=== PATIENT | male | born 1970 | race Caucasian/White ===

== ENCOUNTER 2024-09-02 09:48 | Emergency (ER) | payer OTHER ==
[2024-09-02 10:07] VITALS: RESP 18; TEMP 98.6
--- NOTE | 2024-09-02 10:17 | ED ---
General Adult HPI - General Chief complaint: ENT Stated complaint: Nose Bleed Time Seen by Provider: 09/02/24 09:54 Source: patient Mode of arrival: EMS - History of Present Illness Initial comments: Dictation was produced using [employer] dictation software. please excuse any grammatical, word or spelling errors. Chief Complaint: 53-year-old male with epistaxis History of Present Illness: Patient is a 53-year-old male he was driving to work when all of a sudden his no started bleeding. Patient panic because he was bleeding rather heavily [place] he called EMS patient was brought to the emergency department. En route to the ER patient's nose stopped bleeding. Denies any pain. Days patient does not take any anticoagulation medications. Patient [place] any symptoms at the bedside. Patient has trouble with nosebleeds especially during the wintertime The ROS documented in this emergency department record has been reviewed and confirmed by me. Those systems with pertinent positive or negative responses have been documented in the HPI. All other systems are other negative and/or noncontributory. - Related Data Previous Rx's Medication Instructions Recorded Cephalexin [Keflex] 500 mg PO Q12HR 7 Days #14 cap 09/02/24 Saline Nasal Gel [Haslet Nasal Gel] 1 applic TOPICAL DAILY #14.1 gm 09/02/24 Allergies Allergy/AdvReac Type Severity Reaction Status Date / Time mold AdvReac Rash/Hives Verified 09/02/24 10:07 Review of Systems ROS Statement: Those systems with pertinent positive or pertinent negative responses have been documented in the HPI. ROS Other: All systems not noted in ROS Statement are negative. Past Medical History Past Medical History: Hypertension History of Any Multi-Drug Resistant Organisms: None Reported Past Surgical History: Orthopedic Surgery Additional Past Surgical History / Comment(s): right thumb Past Psychological History: No Psychological Hx Reported Smoking Status: Never smoker Past Alcohol Use History: None Reported Past Drug Use History: None Reported General Exam - General Exam Comments Initial Comments: General: Well-appearing, nontoxic, no acute distress, dried blood on his hands and short Head: Normocephalic, atraumatic Eyes: PERRLA, EOMI ENT: Airway patent Naris: No active bleeding, no nasal septal hematoma, no blood in the posterior oropharynx Chest: Nonlabored breathing Skin: No visual rash, normal skin tone Neuro: Alert and oriented 3 Musculoskeletal: No gross abnormalities Course Vital Signs 12/17/24 12/17/24 12/17/24 10:02 10:56 11:59 Temperature 98.6 F Pulse Rate 102 H 108 H 107 H Respiratory 18 18 18 Rate Blood Pressure 177/99 174/95 177/98 O2 Sat by Pulse 98 95 96 Oximetry Medical Decision Making - Medical Decision Making Was pt. sent in by a medical professional or institution (, PA, [employer], urgent care, hospital, or fci...) When possible be specific @ -No Did you speak to anyone other than the patient for history (EMS, parent, family, police, friend...)? What history was obtained from this source @ -No Did you review nursing and triage notes (agree or disagree)? Why? @ -I reviewed and agree with nursing and triage notes Were old charts reviewed (outside hosp., previous admission, EMS record, old EKG, old radiological studies, urgent care reports/EKG's, fci records)? Report findings @ -No old charts were reviewed Differential Diagnosis (chest pain, altered mental status, abdominal pain women, abdominal pain men, vaginal bleeding, musculoskeletal, weakness, fever, dyspnea, syncope, headache, dizziness, GI bleed, back pain, seizure, CVA, palpatations, mental health)? @ -Anterior nasal bleed, posterior nasal bleed, nasal fracture, nasal septal hematoma EKG interpreted by me (3pts min.). @ -None done X-rays interpreted by me (1pt min.). @ -None done CT interpreted by me (1pt min.). @ -None done U/S interpreted by me (1pt. min.). @ -None done What testing was considered but not performed or refused? (CT, X-rays, U/S, labs)? Why? @ -None What meds were considered but not given or refused? Why? @ -None Was smoking cessation discussed for >3mins.? @ -No Were there social determinants of health that impacted care today? How? (Homelessness, low income, unemployed, alcoholism, drug addiction, transportation, low edu. Level, literacy, decrease access to med. care, [facility], rehab)? @ -No Was there de-escalation of care discussed even if they declined (Discuss DNR or withdrawal of care, Hospice)? DNR status @ -No What co-morbidities impacted this encounter? (DM, HTN, Smoking, COPD, CAD, Cancer, CVA, ARF, Chemo, Hep., AIDS, mental health diagnosis, sleep apnea, morb id obesity)? @ -None Was patient admitted / discharged? Hospital course, mention meds given and route, prescriptions, significant lab abnormalities, going to OR and other pertinent info. @ -53-year-old male with epistaxis. Vital signs stable. Patient well- appearing at the bedside. No active epistaxis at the bedside. Patient given Afrin nasal spray and Isabella nasal spray. Discharged told to follow-up with ENT. Source of bleed is likely anterior. Following department patient had recurrence of nosebleed. Patient's left nostril was packed with Merocel. He was observed emergency department for totality of 2 hours and 34 minutes. Reevaluated again at bedside 12:23 PM with no recurrence of bleeding. Patient given nasal sprays along with antibiotics and referral to ENT Did you discuss the management of the patient with other professionals (professionals i.e. , PA, [employer], lab, RT, psych nurse, bilingual social worker, hook up driver, teacher, community relations officer, case management associate)? Give summary @ -No Was critical care preformed (if so, how long)? @ -No Undiagnosed new problem with uncertain prognosis? @ -No Drug Therapy requiring intensive monitoring for toxicity (Heparin, Nitro, Insulin, Cardizem)? @ -No Were any procedures done? @ -No Diagnosis/symptom? Acute, or Chronic, or Acute on Chronic? Uncomplicated (without systemic symptoms) or Complicated (systemic symptoms)? @ -Epistaxis Side effects of treatment? @ -No Exacerbation, Progression, or Severe Exacerbation? @ -No Poses a threat to life or bodily function? How? (Chest pain, [place], [place], pneumonia, PE, COPD, DKA, ARF, appy, cholecystitis, CVA, Diverticulitis, Homicidal, Suicidal, threat to staff... and all critical care pts) @ -No Disposition Clinical Impression: Epistaxis Disposition: HOME SELF-CARE Condition: Good Instructions (If sedation given, give patient instructions): Nosebleed (ED) Additional Instructions: Do not remove nasal packing. Take antibiotics for as long as the nasal packing is in place. Please follow-up with ENT for further care. Prescriptions: Saline Nasal Gel [Haslet Nasal Gel] 1 applic TOPICAL DAILY #14.1 gm Cephalexin [Keflex] 500 mg PO Q12HR 7 Days #14 cap Is patient prescribed a controlled substance at d/c from ED?: No Referrals: Gopi Rasmussen MD [STAFF PHYSICIAN] - 1-2 days Time of Disposition: 10:16
[2024-09-02] MEDS: OXYMETAZOLINE 0.05% NASL SPRAY 1 SPRAY BOTTLE NASAL STA (10:19)
[2024-09-02] MEDS: SILVER NITRATE APPLICATOR 1 EACH STICK..EA. TOPICAL STA (10:21)
[2024-09-02 12:00] VITALS: BP 177/98; PULSE 107
[2024-09-02] MEDS: SODIUM CHLORIDE 0.65% NASAL SPRAY 44 ML BTL NASAL PRN (12:11)
== END 2024-09-02 12:33 | disposition home or self-care (01) ==
LOC: EC 09:48
DX: R04.0 Epistaxis (principal); Z88.8 Allergy status to other drugs, medicaments and biological substances
CPT/HCPCS: 99283